=== PATIENT | male | born 1935 | race Native Hawaiian/Other Pacific Islander ===

== ENCOUNTER 2017-01-22 10:55 | Day surgery (SDC) | payer MEDICARE ==
[2017-01-17 13:56] VITALS: BMI 27.3
[2017-01-22] MEDS ORDERED: Lidocaine 1% Inj (20ml) ONE (15:39)
[2017-01-22] MEDS ORDERED: ceFAZolin IV 1 gm in Dextrose 1 GM/50 ML BAG IVPB ONE (15:40)
[2017-01-22] MEDS ORDERED: Lactated Ringer's 1,000 ML IV ONE (16:25)
[2017-01-22] MEDS ORDERED: Propofol 10 mg/ml Inj (20 ML) ONE (16:28)
[2017-01-22] MEDS ORDERED: Labetalol 25mg/5ml Syringe IVP PRN (17:32)
--- NOTE | 2017-01-22 17:33 | PCM.SURG1 ---
Surgeon's Initial Post Op Note - Surgeon's Notes Surgeon: Dr. Pappas Drapery Worker: Dr. Wu PGY2 Type of Anesthesia: General LMA Pre-Operative Diagnosis: right olecranon bursa Operative Findings: see dictation Post-Operative Diagnosis: same Operation Performed: excision of right olecranon bursa Specimen/Specimens Removed: right olecranon bursa Estimated Blood Loss: EBL {In ML}: 15 Blood Products Given: N/A Drains Used: No Drains Post-Op Condition: Good Date of Surgery/Procedure: 01/22/17 Time of Surgery/Procedure: 16:25
[2017-01-22] MEDS ORDERED: HYDROmorphone 0.5 mg/0.5 ml ISec IVP PRN (18:24)
[2017-01-22 20:06] VITALS: RESP 12
[2017-01-22 20:17] VITALS: BP 139/68; PULSE 60; TEMP 98; O2SAT 94
--- NOTE | 2017-01-23 05:14 | OP ---
PREOPERATIVE DIAGNOSIS: Right olecranon bursa. POSTOPERATIVE DIAGNOSIS: Right olecranon bursa. PROCEDURE: Excision of right olecranon bursa. SURGEON: Oren Pappas Jr., MD CHEMICAL PROCESS ANALYST: Dr. Leigh. ANESTHESIOLOGIST: . ANESTHESIA: General anesthesia, LMA. IDENTIFICATION: An 81-year-old man, large painful olecranon bursa on the right elbow, recent onset. OPERATIVE FINDINGS: Lesion was completely removed. Extruded rupture just prior to it was removed with the entire sac and its contents were removed. Sling and a mildly compressive dressing was applied after hemostasis was obtained and the wound was closed. Oren Pappas Jr., MD
== END 2017-01-22 19:25 | disposition home or self-care (01) ==
LOC: C.SDS 10:55
PROVIDERS: ATTEND Surgery Vascular Surgery
DX: M25.521 Pain in right elbow (principal)
CPT/HCPCS: 24105; 88305; J0690; J1170; J2001; J2704; J3010; J7120